=== PATIENT | female | born 1990 | race Caucasian/White ===

== ENCOUNTER 2017-04-02 04:10 | Inpatient (IN) | payer OTHER ==
[~2017-04-02] VITALS: Ht 167.6 cm; Wt 113.6 kg
[2017-04-02 04:57] VITALS: Ht 167.6 cm; Wt 113.6 kg
[2017-04-02] MEDS ORDERED: OXYTOCIN 30 UNITS/LR 500 ML IV SCH ×3 (05:00)
[2017-04-02] MEDS ORDERED: BUTORPHANOL 2 MG INJ IV PRN (05:00)
[2017-04-02] MEDS ORDERED: MISOPROSTOL 200 MCG TAB PR PRN ×2 (05:00→06:00)
[2017-04-02] MEDS ORDERED: IBUPROFEN 600 MG TAB PO PRN (05:00)
[2017-04-02] MEDS ORDERED: METHYLERGONOVINE 0.2 MG INJ IM PRN ×2 (05:00→06:00)
[2017-04-02] MEDS ORDERED: OXYTOCIN 30 UNITS/LR 500 ML IV PRN ×2 (05:00→06:00)
[2017-04-02] MEDS ORDERED: OXYCODONE/ASPIRIN (4.88/325) TAB PO PRN (05:00)
[2017-04-02] MEDS ORDERED: LIDOCAINE 1% (MPF) 30 ML INJ INJ PRN (05:00)
[2017-04-02] MEDS ORDERED: CARBOPROST 250 MCG INJ IM PRN ×2 (05:00→06:00)
[2017-04-02] MEDS ORDERED: AMPICILLIN 2 GM/NS (PMX) 100 ML IV ONE (05:00)
[2017-04-02] MEDS ORDERED: PREN-93 PO (05:02)
[2017-04-02] MEDS: LACTATED RINGER'S 1,000 ML IV SCH ×3 (06:08→20:49)
[2017-04-02] MEDS: LACTATED RINGER'S 1,000 ML IV PRN ×2 (07:17→09:48)
[2017-04-02 07:22] LABS: BASOPHILS % 0.1 % (0.0-2.0); EOSINOPHILS # 0.1 10^3/ul (0.0-0.5); EOSINOPHILS % 1.1 % (0.0-7.0); HEMATOCRIT 35.3 % (37.0-47.0); HEMOGLOBIN 11.7 g/dl (12.0-16.0); LYMPHOCYTES # 1.6 10^3/ul (0.8-2.9); LYMPHOCYTES % 15.6 % (15.0-51.0); MEAN CORPUSCULAR HEMOGLOBIN 27.6 pg (29.0-33.0); MEAN CORPUSCULAR HGB CONC 33.1 g/dl (32.0-37.0); MEAN CORPUSCULAR VOLUME 83.3 fl (82.0-101.0); MEAN PLATELET VOLUME 11.1 fl (7.4-10.4); MONOCYTE # 0.6 10^3/ul (0.3-0.9); MONOCYTES % 5.8 % (0.0-11.0); NEUTROPHIL # 7.7 10^3/ul (1.6-7.5); NEUTROPHILS % 76.9 % (39.0-77.0); PLATELET COUNT 207 10^3/UL (140-415); RED BLOOD COUNT 4.24 10^6/ul (4.20-5.40); RED CELL DISTRIBUTION WIDTH 15.4 % (11.5-14.5)
[2017-04-02 07:37] LABS: INR 0.89; PT RATIO 0.9
[2017-04-02 07:38] LABS: PARTIAL THROMBOPLASTIN TIME 27.1 Sec (25.0-35.0)
--- NOTE | 2017-04-02 08:24 | RADRPT ---
PROCEDURE: US OB. CLINICAL INDICATION: Size and dates , SROM TECHNIQUE: Multiple sonographic images of the pelvis and gravid uterus were obtained. The images were reviewed on a PACS workstation. COMPARISON: No prior studies are available for comparison. FINDINGS: There is a single viable intrauterine gestation. Cardiac activity is present with 156 beats per min tus[place]ora. There is a vertex presentation. The placenta is anterior. There is no evidence for an abruption or placenta previa. Measurements were made in order to determine age. The results are as follows: BPD =9.5 cm HC =34.4 cm AC =37 cm FL =7.4 cm Estimated gestational age of approximately 39 weeks and 2 days based on ultrasound measurements. Clinical age: 36 weeks and 6 days. The estimated date of delivery is 04/07/17, based on ultrasound measurements. The EFW = 3915 g, >97%, based on LMP age. RPTAT: AA IMPRESSION: Single viable intrauterine gestation of approximately 39 weeks and 2 days based on ultrasound measu rements. Larger than clinical age by 2.5 weeks. .Collins Cutler MD, MD Date Time Electronically viewed and signed by .Collins Cutler MD, on 04/02/2017 08:23 .S/
[2017-04-02] MEDS ORDERED: VALACYCLOVIR 500 MG TAB PO ONE (09:00)
--- NOTE | 2017-04-02 09:20 | HP ---
Date/Time of Note Date/Time of Note DATE: 04/02/17 TIME: 09:16 OB - History Hx of Present Chief Complaint: LOF : 1 Para: 0 Care: Good Care Ultrasounds: Normal mid trimester US Obstetrical Complications: None Medical Complications: None Other Concerns: h/o genital herpes-took acyclovir for 1 week, no current outbreak Past Family/Social History * Past Medical, Surgical, Family and Obstetric Histories reviewed from chart. GBS Status: Unknown OB Admission Exam Physical Exam HEENT: WNL Heart: Rhythm Normal Lungs: Clear Abdomen: WNL Extremities: Normal Cervical Dilatation: 3cm Membranes: Ruptured Amniotic Fluid: Clear Accelerations: Accelerations Present Decelerations: No Decelerations Varibility: Moderate Last 72 hours Lab Results CBC & BMP 04/02/17 06:00 OB Assessment/Plan Reason for admission: active labor Plan: Expectant Management Other plan: Pitocin, epidural CATRINA Hernandez Apr 02, 2017 09:20
[2017-04-02] MEDS: AMPICILLIN 1 GM/NS (PMX) 50 ML IV SCH ×3 (09:49→19:24)
[2017-04-02] MEDS ORDERED: FENTAnyl 2MCG/ML-ROPIV 0.2% 100 ML ONE (10:09)
[2017-04-02] MEDS ORDERED: NALOXONE (0.4 MG/ML) INJ IV PRN (12:30)
[2017-04-02] MEDS: FENTAnyl 2MCG/ML-ROPIV 0.2% 100 ML BAG EPI SCH ×2 (16:40→22:18)
--- NOTE | 2017-04-03 00:34 | LDN ---
Date/Time of Note Date/Time of Note DATE: 04/03/17 TIME: 00:31 Delivery Summary 26 Y/O G1 with SIUP at 36 6/7 wks with SROM at 01:19/04- delivered a male . : 8/9 Weight: 8 lbs 15 oz Time of delivery : 23:43 Weeks of Gestation 36 6/7 Placenta Delivered: Spontaneously Meconium: none Episiotomy: No Perineal laceration: 1 Laceration repair: 3/0 vicryl Anesthesia type: Epidural Estimated blood loss: 100 Sponge & Needle done & correct: Yes All needle counts correct: Yes Any foreign bodies felt in the: No Problems: Infant Delivery Information Sex Infant Sex: male Apgars 1 Minute: 8 5 Minute: 9 10 Minute: 10 Suctioning Nose & mouth suctioned at juan r: Yes Umbilical Cord Umbilical cord with: 3 Vessels Cord presentations: no nuchal cord Cord Blood was obtained: Yes ARIANA FONG Apr 03, 2017 00:34
[2017-04-03] MEDS ORDERED: LACTATED RINGER'S 1,000 ML IV* SCH ×2 (01:47→06:00)
[2017-04-03] MEDS: DEXTROSE 5%-LR 1,000 ML IV SCH ×2 (01:47→09:47)
[2017-04-03] MEDS ORDERED: METHYLERGONOVINE 0.2 MG INJ IM PRN (02:00)
[2017-04-03] MEDS ORDERED: DIPHENHYDRAMINE 50 MG INJ IV PRN (02:00)
[2017-04-03] MEDS ORDERED: MISOPROSTOL 200 MCG TAB PR PRN (02:00)
[2017-04-03] MEDS ORDERED: BENZOCAINE 20% 56 ML SPRAY TOP PRN (02:00)
[2017-04-03] MEDS ORDERED: ONDANSETRON 4 MG INJ IV PRN (02:00)
[2017-04-03] MEDS ORDERED: ZOLPIDEM 5 MG TAB PO PRN (02:00)
[2017-04-03] MEDS ORDERED: CARBOPROST 250 MCG INJ IM PRN ×2 (02:00→06:00)
[2017-04-03] MEDS ORDERED: LANOLIN 7 GM TUBE TOP PRN (02:00)
[2017-04-03] MEDS ORDERED: WITCH HAZEL/GLYCERIN PAD PR PRN ×2 (02:00→06:00)
[2017-04-03] MEDS ORDERED: DIBUCAINE 1% 30 GM OINT PR PRN (02:00)
[2017-04-03] MEDS ORDERED: ACETAMINOPHEN 325 MG TAB PO PRN (02:00)
[2017-04-03] MEDS ORDERED: OXYTOCIN 30 UNITS/LR 500 ML IV PRN ×2 (02:00→06:00)
[2017-04-03] MEDS ORDERED: OXYCODONE/ASPIRIN (4.88/325) TAB PO PRN ×2 (02:00→06:00)
[2017-04-03] MEDS ORDERED: SENNA/DOCUSATE NA (8.6MG/50MG) TAB PO PRN ×2 (02:00→06:00)
[2017-04-03 02:15] VITALS: BP 123/70; PULSE 100; RESP 18
[2017-04-03 04:10] VITALS: BP 109/58; PULSE 91; RESP 18
[2017-04-03] MEDS: IBUPROFEN 600 MG TAB PO SCH ×3 (05:51→17:22)
[2017-04-03] MEDS ORDERED: IBUPROFEN 600 MG TAB PO SCH (06:00)
[2017-04-03] MEDS ORDERED: DIBUCAINE 1% 30 GM OINT TOP PRN (06:00)
[2017-04-03 07:16] LABS: BASOPHILS % 0.1 % (0.0-2.0); EOSINOPHILS # 0.1 10^3/ul (0.0-0.5); EOSINOPHILS % 0.6 % (0.0-7.0); HEMATOCRIT 34.1 % (37.0-47.0); HEMOGLOBIN 11.3 g/dl (12.0-16.0); LYMPHOCYTES # 1.4 10^3/ul (0.8-2.9); MEAN CORPUSCULAR HEMOGLOBIN 27.6 pg (29.0-33.0); MEAN CORPUSCULAR HGB CONC 33.1 g/dl (32.0-37.0); MEAN CORPUSCULAR VOLUME 83.2 fl (82.0-101.0); MONOCYTE # 0.9 10^3/ul (0.3-0.9); NEUTROPHIL # 11.9 10^3/ul (1.6-7.5); PLATELET COUNT 200 10^3/UL (140-415); RED CELL DISTRIBUTION WIDTH 15.2 % (11.5-14.5); WHITE BLOOD COUNT 14.3 10^3/ul (4.8-10.8)
[2017-04-03 08:00] VITALS: BP 114/68; PULSE 80; RESP 18
--- NOTE | 2017-04-03 08:52 | PN ---
Date/Time of Note Date/Time of Note DATE: 04/03/17 TIME: 08:50 OB Subjective Subjective Subjective PPD#1 Patient seen and examined. She is doing well, denies nausea, vomiting, shortness of breath, chest pain, headache. Lochia is appropriate. She passed flatus. She has been ambulating and tolerating regular diet. OB Objective Objective Objective General: AAO X 3, comfortable, NAD, appropriate mood and affect Heart: RRR +S1, +S2, no murmurs Lungs: Clear to auscultation (B/L), no rales, rhonchi or wheezing ABD: Soft, non-tender. UFH: 2 cm below umbilicus Flank: No CVA tenderness (B/L) LE: Mild edema. No clubbing, cyanosis, thigh or calf tenderness (B/L) OB Assessment/Plan Reason for admission: rupture of membranes Other plan: 26 y/o , PPD#1 - Afebrile, vital sign stable - Routine post- care - Control options discussed - Feeding: Bottle feeding, baby at bedside and doing well - Discharge home tomorrow - Instruction and prescription given - [facility] up [facility] ARIANA FONG Apr 03, 2017 08:52
--- NOTE | 2017-04-03 08:56 | DS ---
Date/Time of Note Date/Time of Note DATE: 04/03/17 TIME: 08:52 Obstetrical Discharge Record Final Diagnosis Final Diagnosis: Term delivered Other Final Diagnosis 26 y/o G1 with PROM at 36 6/7 weeks delivered at 37 weeks Vaginal Delivery Obstetrical Delivery: Spontaneous Complications Augmentation: Yes Rupture of Membranes: Yes Gestational Age at Rupture 36 6/7 weeks Condition on Discharge Physical Assessment Voiding: Yes Bowel Movement: Yes Breast: Soft, non-tender Fundus: Firm Episiotomy: None Calf Tenderness: No Patient Condition: Stable ARIANA FONG Apr 03, 2017 08:56
[2017-04-03] MEDS: VALACYCLOVIR 500 MG TAB PO SCH (09:48)
[2017-04-03 15:56] VITALS: BP 108/78; PULSE 82; RESP 18
[2017-04-03 19:50] VITALS: BP 120/81; PULSE 95; RESP 18
[2017-04-04] MEDS: IBUPROFEN 600 MG TAB PO SCH ×4 (00:08→18:02)
[2017-04-04 03:50] VITALS: BP 94/58; PULSE 69; RESP 18
[2017-04-04 08:20] VITALS: BP 120/80; PULSE 87; RESP 18
[2017-04-04] MEDS: VALACYCLOVIR 500 MG TAB PO SCH (10:25)
[2017-04-04 16:00] VITALS: BP 123/84; PULSE 89; RESP 18
[2017-04-05] MEDS ORDERED: DIPHTH/TET/ACEL PERTUSS (ADULT) 0.5 ML VIAL IM* ONE (09:00)
[2017-04-05] MEDS ORDERED: MEASLES,MUMPS,RUBELLA VACCINE INJ SC* ONE (09:00)
== END 2017-04-04 20:20 | disposition home or self-care (01) | DRG 775 ==
LOC: L-D 04:10 → OBT 04:10 → L-D 05:00 → PP1 04-03 02:17
PROVIDERS: ADMIT Obstetrics & Gynecology; ATTEND Obstetrics & Gynecology
PROC: 10E0XZZ Delivery of Products of Conception, External Approach (ICD-10-PCS; principal; 2017-04-02)
DX: O80 Encounter for full-term uncomplicated delivery (principal); Z37.0 Single live birth; Z3A.37 37 weeks gestation of pregnancy
CPT/HCPCS: 62319; 76815; 85025; 85610; 85730; 86592; 86850; 86900; 86901; 99464; G0463; J0290; J0595; J2590; J3010; J7120; J7121

== ENCOUNTER 2017-04-08 18:00 | Emergency (ER) | payer OTHER ==
[~2017-04-08] VITALS: Ht 167.6 cm; Wt 109.0 kg
[2017-04-08 18:04] VITALS: Ht 167.6 cm; Wt 109.0 kg
[2017-04-08 19:54] LABS: ADD UMIC YES; UR ASCORBIC ACID 20 mg/dL (NEGATIVE); UR BACTERIA FEW /HPF (NONE SEEN); UR BILIRUBIN (Dip) NEGATIVE (NEGATIVE); UR BLOOD (Dip) 3+ mg/dL (NEGATIVE); UR BUDDING YEAST FEW /HPF (NONE SEEN); UR CLARITY SLIGHTLY CLOUDY (CLEAR); UR COLOR YELLOW (YELLOW); UR GLUCOSE (Dip) NEGATIVE (NEGATIVE); UR KETONES (Dip) NEGATIVE (NEGATIVE); UR LEUKOCYTE ESTERASE (Dip) 3+ Leu/ul (NEGATIVE); UR NITRITE (Dip) NEGATIVE (NEGATIVE); UR RBC 10 /HPF (0-5); UR SPECIFIC GRAVITY (Dip) 1.015 (1.003-1.030); UR SQUAMOUS EPITHELIAL CELL FEW /HPF (FEW); UR TOTAL PROTEIN (Dip) NEGATIVE (NEGATIVE); UR UROBILINOGEN (Dip) NEGATIVE (NEGATIVE)
[2017-04-08] MEDS ORDERED: CEPH-443 PO (20:11)
--- NOTE | 2017-04-08 20:14 | ERD ---
ER Documentation Chief Complaint Chief Complaint BLURRY VISION HPI Referral family have an episode of blurry vision starting this afternoon. History significant for a baby being PICU under the bili lights. She was sleeping in the room. When she awoke she had some blurry vision which is currently improving. She denies any visual field deficits or pain. She denies any headaches. As fevers, vomiting, shortness breath or chest pain. ROS All systems reviewed and are negative except as per history of present illness. Medications Home Meds Active Scripts Cephalexin* (Keflex*) 500 Mg Capsule, 500 MG PO QID for 5 Days, CAP Prov:FLORENCIA BURNS MD 04/08/17 Discontinued Reported Medications Vit No.124/Iron/FA ( Vitamin Tablet) 1 Each Tablet, 1 EACH PO, TAB 04/02/17 Allergies Allergies: Coded Allergies: almond (Verified Allergy, Intermediate, rash, 04/02/17) peanut (Verified Allergy, Intermediate, rash, 04/02/17) PMhx/Soc Medical and Surgical Hx: pt denies Medical Hx, pt denies Surgical Hx Hx Alcohol Use: No Hx Substance Use: No Hx Tobacco Use: No Smoking Status: Never smoker Physical Exam Vitals Vital Signs Date Time Temp Pulse Resp B/P Pulse Ox O2 Delivery O2 Flow Rate FiO2 04/08/17 18:04 98.3 86 19 118/80 100 Physical Exam Const: [], [id number]. Head: Atraumatic Eyes: Normal Conjunctiva. Eyes PERRLA and extraocular movements intact. Visual acuity shows no acute abnormalities. ENT: Normal External Ears, Nose and Mouth. Neck: Full range of motion..~ No meningismus. Resp: Clear to auscultation bilaterally Cardio: Regular rate and rhythm, no murmurs Abd: Soft, non tender, non distended. Normal bowel sounds Skin: No petechiae or rashes Back: No midline or flank tenderness Ext: No cyanosis, or edema Neur: Awake and alert Psych: Normal Mood and Affect Results 24 hrs Laboratory Tests Test 04/08/17 19:23 Urine Color YELLOW Urine Clarity SLIGHTLY CLOUDY Urine pH 6.0 Urine Specific Galien 1.015 Urine Ketones NEGATIVEmg/dL Urine Nitrite NEGATIVEmg/dL Urine Bilirubin NEGATIVEmg/dL Urine Urobilinogen NEGATIVEmg/dL Urine Leukocyte Esterase 3+Sandi/ul Urine Microscopic RBC 10/HPF Urine Microscopic WBC 175/HPF Urine Squamous Epithelial Cells FEW/HPF Urine Bacteria FEW/HPF Urine Yeast (Budding) FEW/HPF Urine Hemoglobin 3+mg/dL Urine Glucose NEGATIVEmg/dL Urine Total Protein NEGATIVEmg/dl Current Medications Medications (Trade) Dose Ordered Sig/Cristi Route PRN Reason Start Time Stop Time Status Last Admin Dose Admin Cephalexin (Keflex) 500 mg ONCE ONCE PO 04/08/17 20:30 04/08/17 20:31 UNV Procedures/MDM Shows 3+ leukocyte esterase and white blood cells. There is no protein. Patient presents with improving blurry vision starting today. May be an effect of the ultraviolet lights that the patient was exposed to. She does have signs of UTI and will be treated for this. Signs or symptoms do not suggest eclampsia, acute glaucoma, retinal artery occlusion, optic neuritis or need additional emergencies history. Patient will be discharged home with further observation and return precautions. We will treat with Keflex for UTI. The patient was stable with no new complaints during the ER course. Clinically , there is no current evidence to suggest meningitis, sepsis, acute abdomen, pneumonia, acute coronary syndrome, pulmonary embolism, or any other emergent condition appearing to require further evaluation or hospitalization. The patient should certainly return for any new or worsening symptoms per the aftercare instructions. They should otherwise follow-up with her primary care doctor for reevaluation this week. Departure Diagnosis: Primary Impression: UTI (urinary tract infection) Urinary tract infection type: acute cystitis Hematuria presence: without hematuria Qualified Code: N30.00 - Acute cystitis without hematuria Additional Impression: Blurring of visual image Condition: Stable Patient Instructions: Understanding Urinary Tract Infections (UTIs), Blurred Vision Additional Instructions: Urine shows infection. Uncertain cause of blurry vision may be related to lites. Recommend further observation, small regular meals, and recheck for new or worsening symptoms. FLORENCIA BURNS MD Apr 08, 2017 20:14
[2017-04-08 20:22] VITALS: BP 120/80; PULSE 82; RESP 18; TEMP 98.3
[2017-04-08] MEDS ORDERED: CEPHALEXIN 500 MG CAP PO ONE (20:30)
== END 2017-04-08 20:23 | disposition home or self-care (01) ==
LOC: FTE 18:00
DX: N30.00 Acute cystitis without hematuria (principal)
CPT/HCPCS: 81001; Z7502; Z7610; 99283

== ENCOUNTER 2018-10-03 09:17 | Day surgery (SDC) | payer OTHER ==
[2018-10-03] VITALS (22 sets, daily range): BP systolic 99–144; BP diastolic 54–86; PULSE 68–95; RESP 16–21; Ht 167.6 cm; Wt 115.8 kg
[~2018-10-03] VITALS: Ht 167.6 cm; Wt 115.8 kg
[~2018-10-03 09:17] MED LIST: CEFAZOLIN 2 GM/50 ML (PMX) 50 ML IVPB SCH; CEPH-443 PO; DESFLURANE 15 MIN ONE; LIDOCAINE 2% (SDV) 5 ML INJ ONE; SOD CHLORIDE 0.9% 1,000 ML IV SCH
--- NOTE | 2018-10-03 10:45 | PREAC ---
Date/Time of Note Date/Time of Note DATE: 10/03/18 TIME: 10:44 Anesthesia Eval and Record Evaluation Time Pre-Procedure Interview DATE: 10/03/18 TIME: 10:44 Age 28 Sex female NPO: 8 hrs Preoperative diagnosis gallstones Planned procedure Lap ever Past Medical History Past Medical History: Includes GI: Morbid obesity Surgery & Anesthesia Issues No known issue Meds Anticoagulation: No Beta Laura within 24 hr: No Reason Beta Laura not given: Pt. not on B-Laura Discontinued Scripts Cephalexin* (Keflex*) 500 Mg Capsule, 500 MG PO QID for 5 Days, CAP Prov:FLORENCIA BURNS MD 04/08/17 Current Medications Sodium Chloride 1,000 ml @ 75 mls/hr [id number] IV ; Start 10/03/18 at 06:00; Stop 10/03/18 at 19:19 Cefazolin Sodium/ Dextrose 50 ml @ 100 mls/hr PREOP IVPB ; Start 10/03/18 at 06:00; Stop 10/03/18 at 16:00 Meds reviewed: Yes Allergies Coded Allergies: almond (Verified Allergy, Intermediate, rash, 10/03/18) peanut (Verified Allergy, Intermediate, rash, 10/03/18) Uncoded Allergies: NUTS (Allergy, Unknown, 10/03/18) Allergies Reviewed: Yes Labs/Studies Labs Reviewed: Reviewed by anesthesiologist test: Negative Pre-procedure Exam Last vitals Vital Signs Date Temp Pulse Resp B/P (MAP) Pulse Ox O2 O2 Flow FiO2 Time Delivery Rate 10/03/18 98.3 81 16 109/75 16 Room Air 10:33 (86) Airway: Adequate mouth opening, Adequate thyromental dist Mallampati: Mallampati II Teeth: Normal Lung: Normal Heart: Normal ASA Physical Status ASA physical status: 2 Emergency: None Planned Anesthetic General/MAC: ETT Nerve block: TAP (bilateral) Pre-operative Attestations Prior to commencing anesthesia and surgery, the patient was re-evaluated, there was verification of: *The patient's identity *The results of appropriate recent lab work and preoperative vital signs *The above evaluation not changing prior to induction *Anesthetic plan, risk benefits, alternative and complications discussed with patient/family; questions answered; patient/family understands, accepts and wishes to proceed. GENEVIEVE CALDWELL October 03, 2018 10:45
[2018-10-03] MEDS ORDERED: ROPIVACAINE 0.5 % 30 ML VIAL ONE (10:55)
[2018-10-03] MEDS ORDERED: FENTAnyl 50 MCG/ML VIAL ONE (10:55)
[2018-10-03] MEDS ORDERED: FENTAnyl 50 MCG/ML VIAL IV PRN ×3 (11:00)
[2018-10-03] MEDS ORDERED: HYDROmorphONE 1 MG/5 ML IV SYRINGE IV PRN ×3 (11:00)
[2018-10-03] MEDS ORDERED: ONDANSETRON 4 MG INJ IV PRN ×2 (11:00→17:30)
[2018-10-03] MEDS ORDERED: DIPHENHYDRAMINE 50 MG INJ IV PRN (11:00)
[2018-10-03] MEDS ORDERED: ALBUTEROL 0.083% (NEB) 2.5 MG/3 ML AMP HHN PRN ×2 (11:00→12:30)
[2018-10-03] MEDS ORDERED: MEPERIDINE 25 MG INJ IV PRN (11:00)
[2018-10-03] MEDS ORDERED: METOCLOPRAMIDE 10 MG INJ IV PRN (11:00)
[2018-10-03] MEDS ORDERED: ROCURONIUM 50 MG INJ ONE (11:35)
[2018-10-03] MEDS ORDERED: SUCCINYLCHOLINE CHLORIDE 100 MG/5 ML SYG IV ONE (11:35)
[2018-10-03] MEDS ORDERED: SUGAMMADEX SODIUM 200 MG/2 ML VIAL IV ONE (11:35)
[2018-10-03] MEDS ORDERED: PROPOFOL 20 ML ONE (11:35)
[2018-10-03] MEDS ORDERED: CEFAZOLIN 1 GM INJ ONE (11:35)
--- NOTE | 2018-10-03 11:46 | OPR ---
Date/Time of Note Date/Time of Note DATE: 10/03/18 TIME: 11:44 Operative Report Procedure Date: October 03, 2018 Preoperative Diagnosis symptomatic gallstones Postoperative Diagnosis same Operation/Procedure Performed laparoscopic cholecystectomy Surgeon see signature line Rubber Heel And Sole Press Tender none Anesthesia Type: general Estimated Blood Loss: 10 - 50 ml's Transfusion none Specimen gallbladder Grafts/Implants none Complications none Pt Condition Post Procedure: stable Indications This is a 28-year-old female with symptomatic gallstones. She is morbidly obese with a BMI of 41.2. She requires surgical excision of her gallbladder. Risks alternatives benefits and personal were discussed the patient. Patient expressed understanding. In addition patient was told about her increased perioperative and postoperative risks due to her morbid obesity including but not limited to bleeding infection common bile duct injury intra-abdominal organ injury need for additional operations were also discussed. Patient expresses understanding and consents to the operation. Procedure Description Patient is taken to the OR and prepped and draped in usual sterile fashion. Chavez rgical time was performed. IV antibiotics given. Infraumbilical transverse incision was made at the 15 blade. Dissection with cautery skin onto the fascia. The fascia was grasped with [place]'s and divided with curved Castro scissors. 0 Vicryl U stitch was placed into the fascia. Tony trocar is introduced. Pneumoperitoneum was established. Midepigastric 12 mm optical trocar was placed under direct visualization. Right upper quadrant upper flank 5 mm optical trochars were placed under direct visualization. Upon initial inspection there is adhesions to the gallbladder. These adhesions were taken down bluntly. The gallbladder is grasped in the fundus and retracted in a lateral and cephalad direction. [place] graspers were used to dissect out the cystic duct and cystic artery. The critical view was established. The cystic duct is divided with 3 clips proximally one clip distal. The division was performed with laparoscopic scissors. The cystic artery was divided with 3 clips proximal clip distal and divided with laparoscopic scissors. The gallbladder was taken off the gallbladder bed with cautery. Good hemostasis established in the surgical bed. The gallbladder is retrieved Endo Catch bag. Ports removed under direct physician. 0 Vicryl sutures tied down the infraumbilical fascial U stitch. Skin is closed and skin teja. A tap block was provided by the anesthesiologist. Dry dressings were applied. Mar ALFARO October 03, 2018 11:46
[2018-10-03] MEDS ORDERED: HYDROCODONE/APAP (5/325) TAB PO ONE (12:00)
[2018-10-03] MEDS ORDERED: DEXAMETHASONE 4 MG/ML 1 ML INJ ONE (12:15)
[2018-10-03] MEDS ORDERED: RACEPINEPHRINE 2.25%(NEB) 0.5 ML AMP ONE (12:15)
[2018-10-03] MEDS ORDERED: FUROSEMIDE 20 MG INJ ONE (12:24)
[2018-10-03] MEDS ORDERED: FUROSEMIDE 20 MG INJ IV ONE (12:30)
[2018-10-03] MEDS ORDERED: LEVALBUTEROL (NEB) 0.63 MG/3 ML AMP HHN PRN (12:30)
[2018-10-03] MEDS ORDERED: DEXAMETHASONE 4 MG/ML 1 ML INJ IV ONE (12:30)
[2018-10-03] MEDS ORDERED: LEVALBUTEROL (NEB) 1.25 MG/0.5 ML AMP HHN PRN (12:30)
[2018-10-03] MEDS ORDERED: RACEPINEPHRINE 2.25%(NEB) 0.5 ML AMP HHN ONE (12:30)
--- NOTE | 2018-10-03 12:45 | PAC ---
Date/Time of Note Date/Time of Note DATE: 10/03/18 TIME: 12:45 Post-Anesthesia Notes Post-Anesthesia Note Last documented vital signs Vital Signs Date Temp Pulse Resp B/P (MAP) Pulse Ox O2 O2 Flow FiO2 Time Delivery Rate 10/03/18 70 16 95 21 12:10 10/03/18 98.6 11:52 10/03/18 109/75 Room Air 10:33 (86) Activity: WNL Respiratory function: WNL Cardiovascular function: WNL Mental status: Baseline Pain reasonably controlled: Yes Hydration appropriate: Yes Nausea/Vomiting absent: Yes GENEVIEVE CALDWELL October 03, 2018 12:45
[2018-10-03] MEDS ORDERED: HYDROCODONE/APAP (5/325) TAB PO PRN ×2 (16:30→17:30)
[2018-10-03] MEDS: morphine 2 MG INJ IV PRN (16:41)
[2018-10-03] MEDS ORDERED: DOCUSATE SODIUM 100 MG CAP PO PRN (17:30)
[2018-10-03] MEDS ORDERED: ZOLPIDEM 5 MG TAB PO PRN (17:30)
[2018-10-03] MEDS ORDERED: morphine 2 MG INJ IV PRN (17:30)
--- NOTE | 2018-10-03 17:33 | HP ---
Date/Time of Note Date/Time of Note DATE: 10/03/18 TIME: 17:16 Assessment/Plan VTE Prophylaxis Risk score (from Ns)>0 risk: 2 SCD applied (from Ns): Yes Pharmacological prophylaxis: NA/contraindicated Pharm contraindication: surgical contra Lines/Catheters IV Catheter Type (from Nrsg): Peripheral IV Assessment/Plan Assessment/Plan -Symptomatic gallstones, status post laparoscopic cholecystectomy Dr. Chavira 10/03/2018. Continue [place] and morphine as needed for pain and Zofran as needed for nausea. Start clear liquid diet progresses patient tolerates. Warm compress to right shoulder for gas pain. Continue postoperative antibiotic. -UTI per UA, continue Rocephin -Morbid obesity with BMI of 41.2 Further recommendations based on clinical course. Plan of care discussed with Dr. Gutierrez. HPI/ROS Admit Date/Time Admit Date/Time Hx of Present Illness Patient is 28-year-old female who denies any chronic condition. Patient has obesity with BMI of 41.2. Patient was evaluated in general surgery consultation for symptomatic gallstones. Patient was brought to the hospital and underwent a laparoscopic cholecystectomy by Dr. Chavira. Postoperatively patient experiencing significant pain, nausea and right shoulder pain. Patient was admitted for f urther evaluation and management. ROS 12 point review of system is negative except for what mentioned in HPI PMH/Family/Social Past Medical History Medical History: no pertinent history Medications Current Medications Albuterol (Proventil 0.083% (Neb)) 2.5 mg PACU ORDER PRN HHN .WHEEZING; Start 10/03/18 at 12:30; Stop 10/03/18 at 18:00 Levalbuterol (Xopenex Neb) 0.63 mg PACU ORDER PRN HHN .WHEEZING; Start 10/03/18 at 12:30; Stop 10/03/18 at 18:00 Levalbuterol (Xopenex Neb) 1.25 mg PACU ORDER PRN HHN .WHEEZING; Start 10/03/18 at 12:30; Stop 10/03/18 at 18:00 Morphine Sulfate (morphine) 2 mg Q2H PRN IV SEVERE PAIN LEVEL 7-10 Last administered on 10/03/18at 16:41; Admin Dose 2 MG; Start 10/03/18 at 16:30 Acetaminophen/ Hydrocodone Bitart ([place] (5/325)) 1 tab Q4H PRN PO MODERATE PAIN LEVEL 4-6; Start 10/03/18 at 16:30 Coded Allergies: almond (Verified Allergy, Intermediate, rash, 10/03/18) peanut (Verified Allergy, Intermediate, rash, 10/03/18) Uncoded Allergies: NUTS (Allergy, Unknown, 10/03/18) Past Surgical History Past Surgical Hx: no surgical history Family History Significant Family History: diabetes (In both parents) Social History Alcohol Use: none Smoking Status: Current some day smoker Drug Use: none Exam/Review of Systems Vital Signs Vitals Vital Signs Date Temp Pulse Resp B/P (MAP) Pulse Ox O2 O2 Flow FiO2 Time Delivery Rate 10/03/18 98.8 83 18 111/72 100 Nasal 2.0 16:54 (85) Cannula 10/03/18 21 12:10 Exam Constitutional: alert, oriented Head: normocephalic Neck: supple Respiratory: clear to auscultation Cardiovascular: nl pulses Gastrointestinal: soft, other (Status post laparoscopic cholecystectomy) Extremities: normal pulses Neurological: nl mental status Skin: nl ALEA Ramirez October 03, 2018 17:30
[2018-10-03] MEDS: HYDROCODONE/APAP (5/325) TAB PO PRN (17:43)
[2018-10-03] MEDS: CEFTRIAXONE 1 GM/50 ML (PMX) 50 ML IVPB SCH (19:01)
[2018-10-04] MEDS: HYDROCODONE/APAP (5/325) TAB PO PRN ×3 (02:01→20:08)
[2018-10-04 02:57] VITALS: BP 110/67; PULSE 81; RESP 18
[2018-10-04 07:20] VITALS: BP 113/67; PULSE 75; RESP 18
--- NOTE | 2018-10-04 09:46 | PN ---
Date/Time of Note Date/Time of Note DATE: 10/04/18 TIME: 09:45 Assessment/Plan VTE Prophylaxis Risk score (from Nsg)>0 risk: 2 SCD applied (from Nsg): Yes Pharmacological prophylaxis: other Lines/Catheters IV Catheter Type (from Nrsg): Saline Lock Urinary Cath still in place: No Assessment/Plan Assessment/Plan s/p lap ever with pain issues and was admitted now improved ok to dc home Result Diagram: 10/04/185 10/04/18444 Results 24hrs Laboratory Tests Test 10/04/18 04:45 White Blood Count 11.7 H Red Blood Count 4.47 Hemoglobin 12.1 Hematocrit 37.6 Mean Corpuscular Volume 84.1 Mean Corpuscular Hemoglobin 27.1 L Mean Corpuscular Hemoglobin Concent 32.2 Red Cell Distribution Width 14.7 H Platelet Count 328 # Mean Platelet Volume 10.4 Immature Granulocytes % 0.300 Neutrophils % 81.1 H Lymphocytes % 13.3 L Monocytes % 4.9 Eosinophils % 0.2 Basophils % 0.2 Nucleated Red Blood Cells % 0.0 Immature Granulocytes # 0.040 H Neutrophils # 9.5 H Lymphocytes # 1.6 Monocytes # 0.6 Eosinophils # 0.0 Basophils # 0.0 Nucleated Red Blood Cells # 0.0 Sodium Level 140 Potassium Level 4.0 Chloride Level 105 Carbon Dioxide Level 28 Anion Gap 7 Blood Urea Nitrogen 12 Creatinine 0.46 Est Glomerular Filtrat Rate mL/min > 60 Glucose Level 137 Calcium Level 9.0 Subjective 24 Hr Interval Summary Free Text/Dictation patient doing well no issues pain is better controlled Exam/Review of Systems Exam Vitals Vital Signs Date Temp Pulse Resp B/P (MAP) Pulse Ox O2 O2 Flow FiO2 Time Delivery Rate 10/04/18 98.2 75 18 113/67 98 Room Air 07:20 (82) 10/03/18 2.0 16:54 10/03/18 21 12:10 Intake and Output 10/03/18 10/03/18 10/04/18 1515:00 23:00 07:00 IntakeIntake Total 1000 ml 290 ml OutputOutput Total 1155 ml BalanceBalance -155 ml 290 ml Exam c/d/i Results Results 24hrs Laboratory Tests Test 10/04/18 04:45 White Blood Count 11.7 H Red Blood Count 4.47 Hemoglobin 12.1 Hematocrit 37.6 Mean Corpuscular Volume 84.1 Mean Corpuscular Hemoglobin 27.1 L Mean Corpuscular Hemoglobin Concent 32.2 Red Cell Distribution Width 14.7 H Platelet Count 328 # Mean Platelet Volume 10.4 Immature Granulocytes % 0.300 Neutrophils % 81.1 H Lymphocytes % 13.3 L Monocytes % 4.9 Eosinophils % 0.2 Basophils % 0.2 Nucleated Red Blood Cells % 0.0 Immature Granulocytes # 0.040 H Neutrophils # 9.5 H Lymphocytes # 1.6 Monocytes # 0.6 Eosinophils # 0.0 Basophils # 0.0 Nucleated Red Blood Cells # 0.0 Sodium Level 140 Potassium Level 4.0 Chloride Level 105 Carbon Dioxide Level 28 Anion Gap 7 Blood Urea Nitrogen 12 Creatinine 0.46 Est Glomerular Filtrat Rate mL/min > 60 Glucose Level 137 Calcium Level 9.0 Medications Medication Current Medications Morphine Sulfate (morphine) 2 mg Q2H PRN IV SEVERE PAIN LEVEL 7-10 Last administered on 10/03/18at 16:41; Admin Dose 2 MG; Start 10/03/18 at 16:30 Acetaminophen/ Hydrocodone Bitart ([place] (5/325)) 1 tab Q4H PRN PO MODERATE PAIN LEVEL 4-6; Start 10/03/18 at 16:30 Ondansetron HCl (Zofran Inj) 4 mg Q6H PRN IV NAUSEA/VOMITING; Start 10/03/18 at 17:30 Acetaminophen/ Hydrocodone Bitart ([place] (5/325)) 1 tab Q6H PRN PO .MOD PAIN 4- 6; Start 10/03/18 at 17:30 Acetaminophen/ Hydrocodone Bitart ([place] (5/325)) 2 tab Q6H PRN PO .SEVERE PAIN 7-10 Last administered on 10/04/18at 02:01; Admin Dose 2 TAB; Start 10/03/18 at 17:30 Morphine Sulfate (morphine) 2 mg Q4H PRN IV .SEVERE PAIN 7-10 Last administered on 10/03/18at 21:13; Admin Dose 2 MG; Start 10/03/18 at 17:30 Docusate Sodium (Colace) 100 mg Q12H PRN PO .CONSTIPATION; Start 10/03/18 at 17:30 Zolpidem Tartrate (Ambien) 5 mg QHS PRN PO .INSOMNIA; Start 10/03/18 at 17:30 Ceftriaxone Sodium 50 ml @ 100 mls/hr Q24H IVPB Last administered on 10/03/18at 19:01; Admin Dose 100 MLS/HR; Start 10/03/18 at 18:00 Mar ALFARO October 04, 2018 09:45
[2018-10-04] MEDS: morphine 2 MG INJ IV PRN (10:39)
--- NOTE | 2018-10-04 13:09 | PN ---
Date/Time of Note Date/Time of Note DATE: 10/04/18 TIME: 13:04 Assessment/Plan VTE Prophylaxis Risk score (from Ns)>0 risk: 2 SCD applied (from Ns): Yes SCD contraindicated: other Pharmacological prophylaxis: other Pharm contraindication: other Lines/Catheters IV Catheter Type (from Nrsg): [place] Urinary Cath still in place: No Assessment/Plan Assessment/Plan -Symptomatic gallstones -status post laparoscopic cholecystectomy Dr. Chavira 10/03/2018. -Continue [place] and morphine as needed for pain and Zofran as needed for nausea. -Warm compress to right shoulder for gas pain. Continue postoperative antibiotic. -UTI per UA, continue Rocephin -Morbid obesity with BMI of 41.2 - weight management Further recommendations based on clinical course. Plan of care discussed with Dr. Gutierrez. Result Diagram: 10/04/18 0445 10/04/18 0445 Results 24hrs Laboratory Tests Test 10/04/18 04:45 White Blood Count 11.7 H Red Blood Count 4.47 Hemoglobin 12.1 Hematocrit 37.6 Mean Corpuscular Volume 84.1 Mean Corpuscular Hemoglobin 27.1 L Mean Corpuscular Hemoglobin Concent 32.2 Red Cell Distribution Width 14.7 H Platelet Count 328 # Mean Platelet Volume 10.4 Immature Granulocytes % 0.300 Neutrophils % 81.1 H Lymphocytes % 13.3 L Monocytes % 4.9 Eosinophils % 0.2 Basophils % 0.2 Nucleated Red Blood Cells % 0.0 Immature Granulocytes # 0.040 H Neutrophils # 9.5 H Lymphocytes # 1.6 Monocytes # 0.6 Eosinophils # 0.0 Basophils # 0.0 Nucleated Red Blood Cells # 0.0 Sodium Level 140 Potassium Level 4.0 Chloride Level 105 Carbon Dioxide Level 28 Anion Gap 7 Blood Urea Nitrogen 12 Creatinine 0.46 Est Glomerular Filtrat Rate mL/min > 60 Glucose Level 137 Calcium Level 9.0 Subjective 24 Hr Interval Summary Free Text/Dictation Eating lunch nad c/o abdominal- surgical incision pain no new events reported last night If stable, anticipate discharge am Eyes: no complaints ENT: no complaints Respiratory: no complaints Cardiovascular: no complaints Gastrointestinal: pain, other (SURGICAL INCSIONAL PAIN ) Genitourinary: no complaints Musculoskeletal: no complaints Skin: no complaints Neurologic: no complaints Endocrine: no complaints Lymphatic: no complaints Psychological: nl mood/affect Exam/Review of Systems Exam Vitals Vital Signs Date Temp Pulse Resp B/P (MAP) Pulse Ox O2 O2 Flow FiO2 Time Delivery Rate 10/04/18 98.2 75 18 113/67 98 Room Air 07:20 (82) 10/03/18 2.0 16:54 10/03/18 21 12:10 Intake and Output 10/03/18 10/03/18 10/04/18 1515:00 23:00 07:00 IntakeIntake Total 1000 ml 290 ml OutputOutput Total 1155 ml BalanceBalance -155 ml 290 ml Constitutional: alert, well developed Psych: nl mood/affect Head: atraumatic Eyes: nl lids, nl sclera ENMT: nl external ears & nose Neck: non-tender Respiratory: clear to auscultation Cardiovascular: nl pulses, other (S1S2) Gastrointestinal: soft, tender (surgical inscion pain- DDI X4) Musculoskeletal: nl extremities to inspection Extremities: normal pulses Neurological: nl mental status, nl speech Lymph: nontender Results Results 24hrs Laboratory Tests Test 10/04/18 04:45 White Blood Count 11.7 H Red Blood Count 4.47 Hemoglobin 12.1 Hematocrit 37.6 Mean Corpuscular Volume 84.1 Mean Corpuscular Hemoglobin 27.1 L Mean Corpuscular Hemoglobin Concent 32.2 Red Cell Distribution Width 14.7 H Platelet Count 328 # Mean Platelet Volume 10.4 Immature Granulocytes % 0.300 Neutrophils % 81.1 H Lymphocytes % 13.3 L Monocytes % 4.9 Eosinophils % 0.2 Basophils % 0.2 Nucleated Red Blood Cells % 0.0 Immature Granulocytes # 0.040 H Neutrophils # 9.5 H Lymphocytes # 1.6 Monocytes # 0.6 Eosinophils # 0.0 Basophils # 0.0 Nucleated Red Blood Cells # 0.0 Sodium Level 140 Potassium Level 4.0 Chloride Level 105 Carbon Dioxide Level 28 Anion Gap 7 Blood Urea Nitrogen 12 Creatinine 0.46 Est Glomerular Filtrat Rate mL/min > 60 Glucose Level 137 Calcium Level 9.0 Medications Medication Current Medications Morphine Sulfate (morphine) 2 mg Q2H PRN IV SEVERE PAIN LEVEL 7-10 Last administered on 10/04/18at 10:39; Admin Dose 2 MG; Start 10/03/18 at 16:30 Acetaminophen/ Hydrocodone Bitart ([place] (5/325)) 1 tab Q4H PRN PO MODERATE PAIN LEVEL 4-6; Start 10/03/18 at 16:30 Ondansetron HCl (Zofran Inj) 4 mg Q6H PRN IV NAUSEA/VOMITING; Start 10/03/18 at 17:30 Acetaminophen/ Hydrocodone Bitart ([place] (5/325)) 1 tab Q6H PRN PO .MOD PAIN 4- 6; Start 10/03/18 at 17:30 Acetaminophen/ Hydrocodone Bitart ([place] (5/325)) 2 tab Q6H PRN PO .SEVERE PAIN 7-10 Last administered on 10/04/18at 02:01; Admin Dose 2 TAB; Start 10/03/18 at 17:30 Morphine Sulfate (morphine) 2 mg Q4H PRN IV .SEVERE PAIN 7-10 Last administered on 10/03/18at 21:13; Admin Dose 2 MG; Start 10/03/18 at 17:30 Docusate Sodium (Colace) 100 mg Q12H PRN PO .CONSTIPATION; Start 10/03/18 at 17:30 Zolpidem Tartrate (Ambien) 5 mg QHS PRN PO .INSOMNIA; Start 10/03/18 at 17:30 Ceftriaxone Sodium 50 ml @ 100 mls/hr Q24H IVPB Last administered on 10/03/18at 19:01; Admin Dose 100 MLS/HR; Start 10/03/18 at 18:00 JOSELO HAY October 04, 2018 13:09
[2018-10-04 14:10] VITALS: BP 103/61; PULSE 71; RESP 16
[2018-10-04] MEDS: CEFTRIAXONE 1 GM/50 ML (PMX) 50 ML IVPB SCH (17:59)
[2018-10-04 20:35] VITALS: BP 98/61; PULSE 66; RESP 20
[2018-10-05] MEDS: HYDROCODONE/APAP (5/325) TAB PO PRN (02:07)
[2018-10-05 02:24] VITALS: BP 109/73; PULSE 62; RESP 20
[2018-10-05 08:05] VITALS: BP 94/59; PULSE 54; RESP 16
--- NOTE | 2018-10-05 12:40 | PN ---
Date/Time of Note Date/Time of Note DATE: 10/05/18 TIME: 12:40 Assessment/Plan VTE Prophylaxis Risk score (from Nsg)>0 risk: 3 SCD applied (from Nsg): Yes Pharmacological prophylaxis: LMWH Lines/Catheters IV Catheter Type (from Nrsg): [place] Urinary Cath still in place: No Assessment/Plan Hospital Course -Symptomatic gallstones -status post laparoscopic cholecystectomy Dr. Chavira 10/03/2018. -Continue [place] and morphine as needed for pain and Zofran as needed for nausea. -Warm compress to right shoulder for gas pain. Continue postoperative antibiotic. -UTI per UA, continue Rocephin -Morbid obesity with BMI of 41.2 - weight management Result Diagram: 10/05/1853810/05/1839 Results 24hrs Laboratory Tests Test 10/05/18 05:39 White Blood Count 11.5 H Red Blood Count 4.34 Hemoglobin 11.6 L Hematocrit 36.8 L Mean Corpuscular Volume 84.8 Mean Corpuscular Hemoglobin 26.7 L Mean Corpuscular Hemoglobin Concent 31.5 L Red Cell Distribution Width 15.2 H Platelet Count 273 Mean Platelet Volume 10.2 Immature Granulocytes % 0.300 Neutrophils % 65.8 Lymphocytes % 26.7 Monocytes % 4.6 Eosinophils % 2.3 Basophils % 0.3 Nucleated Red Blood Cells % 0.0 Immature Granulocytes # 0.040 H Neutrophils # 7.5 Lymphocytes # 3.1 H Monocytes # 0.5 Eosinophils # 0.3 Basophils # 0.0 Nucleated Red Blood Cells # 0.0 Sodium Level 138 Potassium Level 4.1 Chloride Level 104 Carbon Dioxide Level 27 Anion Gap 7 Blood Urea Nitrogen 16 Creatinine 0.52 Est Glomerular Filtrat Rate mL/min > 60 Glucose Level 106 Calcium Level 8.6 Subjective 24 Hr Interval Summary Free Text/Dictation Patient has no complaints Exam/Review of Systems Exam Vitals Vital Signs Date Temp Pulse Resp B/P (MAP) Pulse Ox O2 O2 Flow FiO2 Time Delivery Rate 10/05/18 97.6 54 16 94/59 (71) 96 08:05 10/04/18 Room Air 14:10 10/03/18 2.0 16:54 10/03/18 21 12:10 Intake and Output 10/04/18 10/04/18 10/05/18 1515:00 23:00 07:00 IntakeIntake Total 650 ml 50 ml BalanceBalance 650 ml 50 ml Constitutional: well developed Head: normocephalic, atraumatic Neck: supple Respiratory: diminished breath sounds Cardiovascular: regular rate and rhythm Gastrointestinal: soft, non-tender Extremities: normal pulses Results Results 24hrs Laboratory Tests Test 10/05/18 05:39 White Blood Count 11.5 H Red Blood Count 4.34 Hemoglobin 11.6 L Hematocrit 36.8 L Mean Corpuscular Volume 84.8 Mean Corpuscular Hemoglobin 26.7 L Mean Corpuscular Hemoglobin Concent 31.5 L Red Cell Distribution Width 15.2 H Platelet Count 273 Mean Platelet Volume 10.2 Immature Granulocytes % 0.300 Neutrophils % 65.8 Lymphocytes % 26.7 Monocytes % 4.6 Eosinophils % 2.3 Basophils % 0.3 Nucleated Red Blood Cells % 0.0 Immature Granulocytes # 0.040 H Neutrophils # 7.5 Lymphocytes # 3.1 H Monocytes # 0.5 Eosinophils # 0.3 Basophils # 0.0 Nucleated Red Blood Cells # 0.0 Sodium Level 138 Potassium Level 4.1 Chloride Level 104 Carbon Dioxide Level 27 Anion Gap 7 Blood Urea Nitrogen 16 Creatinine 0.52 Est Glomerular Filtrat Rate mL/min > 60 Glucose Level 106 Calcium Level 8.6 Medications Medication Current Medications Morphine Sulfate (morphine) 2 mg Q2H PRN IV SEVERE PAIN LEVEL 7-10 Last administered on 10/04/18at 10:39; Admin Dose 2 MG; Start 10/03/18 at 16:30 Acetaminophen/ Hydrocodone Bitart ([place] (5/325)) 1 tab Q4H PRN PO MODERATE PAIN LEVEL 4-6; Start 10/03/18 at 16:30 Ondansetron HCl (Zofran Inj) 4 mg Q6H PRN IV NAUSEA/VOMITING; Start 10/03/18 at 17:30 Acetaminophen/ Hydrocodone Bitart ([place] (5/325)) 1 tab Q6H PRN PO .MOD PAIN 4- 6; Start 10/03/18 at 17:30 Acetaminophen/ Hydrocodone Bitart ([place] (5/325)) 2 tab Q6H PRN PO .SEVERE PAIN 7-10 Last administered on 10/05/18at 02:07; Admin Dose 2 TAB; Start 10/03/18 at 17:30 Morphine Sulfate (morphine) 2 mg Q4H PRN IV .SEVERE PAIN 7-10 Last administered on 10/03/18at 21:13; Admin Dose 2 MG; Start 10/03/18 at 17:30 Docusate Sodium (Colace) 100 mg Q12H PRN PO .CONSTIPATION Last administered on 10/04/18at 20:08; Admin Dose 100 MG; Start 10/03/18 at 17:30 Zolpidem Tartrate (Ambien) 5 mg QHS PRN PO .INSOMNIA; Start 10/03/18 at 17:30 Ceftriaxone Sodium 50 ml @ 100 mls/hr Q24H IVPB Last administered on 10/04/18at 17:59; Admin Dose 100 MLS/HR; Start 10/03/18 at 18:00 VAN CHAVEZ October 05, 2018 12:40
[2018-10-05 14:51] VITALS: BP 104/68; PULSE 79; RESP 16
[2018-10-05] MEDS: CEFTRIAXONE 1 GM/50 ML (PMX) 50 ML IVPB SCH (17:45)
[2018-10-05 19:57] VITALS: BP 105/60; PULSE 85; RESP 20
[2018-10-06 02:17] VITALS: BP 115/71; PULSE 87; RESP 18
[2018-10-06 08:14] VITALS: BP 103/59; PULSE 88; RESP 18
--- NOTE | 2018-10-06 12:35 | DS ---
Date/Time of Note Date/Time of Note DATE: 10/06/18 TIME: 12:35 Discharge Summary Admission/Discharge Info Admit Date/Time 10/03/18 Discharge Date/Time 10/06/18 Discharge Diagnosis -Symptomatic gallstones, status post laparoscopic cholecystectomy Dr. Chavira 10/03/2018. Continue [place] and morphine as needed for pain and Zofran as needed for nausea. Start clear liquid diet progresses patient tolerates. Warm compress to right shoulder for gas pain. Continue postoperative antibiotic. -UTI per UA, continue Rocephin -Morbid obesity with BMI of 41.2 Patient Condition: Fair Consults surgery Procedures laparoscopic cholecystectomy Hx of Present Illness Patient comes in with symptomatic gallstones. Hospital Course Patient comes in with symptomatic gallstones. Patient had laparoscopic cholec ystectomy. She tolerated the procedure and when felt to be stable, patient was sent home. -Symptomatic gallstones -status post laparoscopic cholecystectomy Dr. Chavira 10/03/2018. -Continue [place] and morphine as needed for pain and Zofran as needed for nausea. -Warm compress to right shoulder for gas pain. Continue postoperative antibiotic. -UTI per UA, continue Rocephin -Morbid obesity with BMI of 41.2 - weight management Home Meds Discontinued Scripts Cephalexin* (Keflex*) 500 Mg Capsule, 500 MG PO QID for 5 Days, CAP Prov:FLORENCIA BURNS MD 04/08/17 Primary Care Provider [facility] Pending Labs Laboratory Tests Test 10/06/18 06:27 Bedside Glucose 108 mg/dL (70-220) VAN CHAVEZ October 06, 2018 12:35
== END 2018-10-06 14:29 | disposition home or self-care (01) ==
LOC: SDS 09:17 → PP2 14:37 → SDS 10-06 14:29
PROVIDERS: ATTEND Surgery
DX: G89.18 Other acute postprocedural pain (principal); K80.10 Calculus of gallbladder with chronic cholecystitis without obstruction
CPT/HCPCS: 47562; 71045; 80048; 82962; 84703; 85025; 88304; 94640; 94664; J0690; J0696; J1100; J1170; J1200; J1940; J2175; J2270; J2405; J2795; J3010; Z7512; Z7610